=== PATIENT | female | born 1980 | race Caucasian/White ===

== ENCOUNTER 2017-03-11 22:55 | Observation (INO) | payer BC, OTHER ==
[2017-03-11] MEDS ORDERED: HYDROmorphone 1 MG/ML Syringe IVPUSH ONE (22:58)
[2017-03-11] MEDS ORDERED: Ondansetron 4 MG in Sodium Chloride 0.9% 50 ML IV STA (22:58)
[2017-03-11] MEDS ORDERED: Sodium Chloride 0.9% 1,000 ML IV ONE (23:00)
[2017-03-11] MEDS: Sodium Chloride 0.9% 1,000 ML ONE (23:00)
[2017-03-11] MEDS: Ondansetron 4 MG/2 ML SDV ONE (23:00)
[2017-03-11] MEDS: HYDROmorphone 1 MG/ML Syringe ONE (23:05)
[2017-03-11] MEDS: HYDROmorphone 1 MG/ML Syringe IVPUSH PRN (23:10)
[2017-03-11 23:14] LABS: CHLORIDE,CL 99 mEq/L (98-106); SODIUM,NA 134 mEq/L (136-145)
--- NOTE | 2017-03-12 01:00 | EDM.PDOC ---
ED HPI GENERAL MEDICAL PROBLEM - General Chief Complaint: Abdominal Pain Stated Complaint: abdominal pain Time Seen by Provider: 03/11/17 23:00 Source of Information: Reports: Patient History Limitations: Reports: No Limitations - History of Present Illness INITIAL COMMENTS - FREE TEXT/NARRATIVE: C/O severe right upper quadrant abdominal pain after eating. Onset: Sudden Duration: Minutes: Location: Reports: Abdomen Quality: Reports: Sharp, Stabbing Severity: Severe Improves with: Reports: Medication - Related Data Allergies Allergy/AdvReac Type Severity Reaction Status Date / Time No Known Allergies Allergy Verified 03/11/17 22:58 Past Medical History - Past Surgical History GI Surgical History: Reports: Appendectomy Female Surgical History: Reports: Section, Tubal Ligation Social & Family History - Family History HEENT: Reports: Cataract OBGYN: Reports: Neurological: Reports: CVA Oncologic: Reports: Leukemia - Tobacco Use Smoking Status *Q: Never Smoker Second Hand Smoke Exposure: No - Caffeine Use Caffeine Use: Reports: Coffee, Soda - Alcohol Use Days Per Week of Alcohol Use: 2 Number of Drinks Per Day: 3 Total Drinks Per Week: 6 Date of Last Drink: 03/11/17 - Recreational Drug Use Recreational Drug Use: No ED ROS GENERAL - Review of Systems Review Of Systems: ROS reveals no pertinent complaints other than HPI. Constitutional: Reports: No Symptoms HEENT: Reports: No Symptoms Respiratory: Reports: No Symptoms Cardiovascular: Reports: No Symptoms Endocrine: Reports: No Symptoms GI/Abdominal: Reports: Abdominal Pain Musculoskeletal: Reports: No Symptoms Skin: Reports: No Symptoms Neurological: Reports: No Symptoms Psychiatric: Reports: No Symptoms Hematologic/Lymphatic: Reports: No Symptoms Immunologic: Reports: No Symptoms ED EXAM, GI/ABD - Physical Exam Exam: See Below Exam Limited By: No Limitations General Appearance: Alert, WD/WN Nose: Normal Inspection Throat/Mouth: Normal Inspection Head: Atraumatic Neck: Normal Inspection Respiratory/Chest: No Respiratory Distress Cardiovascular: Normal Peripheral Pulses GI/Abdominal Exam: Guarding, Rigid, Tender Back Exam: Normal Inspection Extremities: Normal Inspection Neurological: Alert, Oriented Psychiatric: Normal Affect Skin Exam: Warm, Dry Course - Vital Signs Last Recorded V/S: Last Vital Signs Temp 99.2 F 03/11/17 23:36 Pulse 64 03/11/17 23:36 Resp 22 H 03/11/17 23:36 BP 117/79 03/11/17 23:36 Pulse Ox 98 03/11/17 23:36 - Orders/Labs/Meds Orders: Active Orders 24 hr Category Date Time Status Abdomen Pelvis w Cont [CT] Stat Exams 03/11/17 23:41 Taken Sodium Chloride 0.9% [Normal Saline] 1,000 ml Med 03/11/17 23:00 Active IV .BOLUS Medication Orders Sodium Chloride (Normal Saline) 1,000 mls @ 125 mls/hr IV .BOLUS ONE Stop: 03/12/17 06:59 Ondansetron HCl 4 mg/ Sodium (Chloride) 52 mls @ 100 mls/hr IV Q4H PRN PRN Reason: Abdominal Pain Labs: Laboratory Tests 03/11/17 03/11/17 03/11/17 Range/Units 22:55 22:58 22:58 WBC 7.8 (5.0-10.0) 10^3/uL RBC 4.28 (4.00-5.50) 10^6/uL Hgb 13.2 (12.0-16.0) g/dL Hct 39.4 (37.0-47.0) % MCV 92.1 (82.0-94.0) fL MCH 30.8 (27.0-32.0) pg MCHC 33.5 (33.0-38.0) g/dL RDW Coeff of Brett 12.7 (11.0-15.0) % Plt Count 332 (150-400) 10^3/uL Neut % (Auto) 62.4 (35-85) % Lymph % (Auto) 29.5 (10-55) % [place] % (Auto) 5.9 (0-16) % Eos % (Auto) 1.8 (0-5) % Baso % (Auto) 0.4 (0-3) % Neut # (Auto) 4.88 (1.80-7.00) 10^3/uL Lymph # (Auto) 2.31 (1.00-4.80) 10^3/uL [place] # (Auto) 0.46 (0.00-0.80) 10^3/uL Eos # (Auto) 0.14 (0.00-0.45) 10^3/uL Baso # (Auto) 0.03 10^3/uL Sodium 134 L (136-145) mEq/L Potassium 3.7 (3.5-5.0) mEq/L Chloride 99 (98-106) mEq/L Carbon Dioxide 24 (21-32) mmol/L BUN 12 (7-18) mg/dL Creatinine 0.8 (0.6-1.0) mg/dL Est Cr Clr Drug Dosing TNP Estimated GFR (MDRD) > 60 (>=60) mL/min Glucose 128 H (75-99) mg/dL Calcium 9.7 (8.4-10.1) mg/dL Total Bilirubin 0.7 (0.0-1.0) mg/dL AST 52 H (15-37) U/L ALT 63 (12-78) U/L Alkaline Phosphatase 127 H (46-116) U/L Total Protein 8.3 H (6.4-8.2) g/dL Albumin 4.2 (3.4-5.0) g/dL Amylase 69 (25-115) U/L Urine Color (YELLOW) Urine Appearance (CLEAR) Urine pH (4.5-8.0) Ur Specific [place] (1.003-1.020) Urine Protein (NEGATIVE) mg/dL Urine Glucose (UA) (NEGATIVE) mg/dL Urine Ketones (NEGATIVE) mg/dL Urine Occult Blood (NEGATIVE) Urine Nitrite (NEGATIVE) Urine Bilirubin (NEGATIVE) Urine Urobilinogen (0.2-1.0) EU/dL Ur Leukocyte Esterase (NEGATIVE) Urine RBC (0-5) /HPF Urine WBC (0-5) /HPF Ur Squamous Epith Cells (NOT SEEN) /HPF Urine Bacteria (NOT SEEN) /HPF 03/11/17 Range/Units 23:25 WBC (5.0-10.0) 10^3/uL RBC (4.00-5.50) 10^6/uL Hgb (12.0-16.0) g/dL Hct (37.0-47.0) % MCV (82.0-94.0) fL MCH (27.0-32.0) pg MCHC (33.0-38.0) g/dL RDW Coeff of Brett (11.0-15.0) % Plt Count (150-400) 10^3/uL Neut % (Auto) (35-85) % Lymph % (Auto) (10-55) % [place] % (Auto) (0-16) % Eos % (Auto) (0-5) % Baso % (Auto) (0-3) % Neut # (Auto) (1.80-7.00) 10^3/uL Lymph # (Auto) (1.00-4.80) 10^3/uL [place] # (Auto) (0.00-0.80) 10^3/uL Eos # (Auto) (0.00-0.45) 10^3/uL Baso # (Auto) 10^3/uL Sodium (136-145) mEq/L Potassium (3.5-5.0) mEq/L Chloride (98-106) mEq/L Carbon Dioxide (21-32) mmol/L BUN (7-18) mg/dL Creatinine (0.6-1.0) mg/dL Est Cr Clr Drug Dosing Estimated GFR (MDRD) (>=60) mL/min Glucose (75-99) mg/dL Calcium (8.4-10.1) mg/dL Total Bilirubin (0.0-1.0) mg/dL AST (15-37) U/L ALT (12-78) U/L Alkaline Phosphatase (46-116) U/L Total Protein (6.4-8.2) g/dL Albumin (3.4-5.0) g/dL Amylase (25-115) U/L Urine Color Yellow (YELLOW) Urine Appearance Clear (CLEAR) Urine pH 8.5 H (4.5-8.0) Ur Specific [place] 1.014 (1.003-1.020) Urine Protein Negative (NEGATIVE) mg/dL Urine Glucose (UA) Negative (NEGATIVE) mg/dL Urine Ketones Trace H (NEGATIVE) mg/dL Urine Occult Blood Negative (NEGATIVE) Urine Nitrite Negative (NEGATIVE) Urine Bilirubin Negative (NEGATIVE) Urine Urobilinogen 0.2 (0.2-1.0) EU/dL Ur Leukocyte Esterase Negative (NEGATIVE) Urine RBC Not seen (0-5) /HPF Urine WBC 0-5 (0-5) /HPF Ur Squamous Epith Cells Occasional H (NOT SEEN) /HPF Urine Bacteria Occasional H (NOT SEEN) /HPF Meds: Medications Generic Name Dose Route Start Last Admin Trade Name Freq PRN Reason Stop Dose Admin Sodium Chloride 1,000 mls @ 125 mls/hr 03/11/17 23:00 Normal Saline IV 03/12/17 06:59 .BOLUS ONE Ondansetron HCl 4 mg/ Sodium 52 mls @ 100 mls/hr 03/12/17 01:08 Chloride IV Q4H PRN Abdominal Pain Discontinued Medications Generic Name Dose Route Start Last Admin Trade Name Nito PRN Reason Stop Dose Admin Hydromorphone HCl 1 mg 03/11/17 22:58 03/11/17 23:53 Dilaudid IVPUSH 03/11/17 22:59 1 mg ONETIME ONE Administration Hydromorphone HCl Confirm 03/11/17 22:54 03/11/17 23:05 Dilaudid Administered 03/11/17 22:55 1 mg Dose Administration 1 mg .ROUTE .STK-MED ONE Ondansetron HCl 4 mg/ Sodium 52 mls @ 100 mls/hr 03/11/17 22:58 03/12/17 00: 19 Chloride IV 03/11/17 23:29 Not Given Q8H STA Sodium Chloride Confirm 03/11/17 22:52 03/11/17 23:00 Normal Saline Administered 03/11/17 22:53 100 ml Dose Administration 1,000 mls @ as directed .ROUTE .STK-MED ONE Ondansetron HCl Confirm 03/11/17 22:54 03/11/17 23:00 Zofran Administered 03/11/17 22:55 4 mg Dose Administration 4 mg .ROUTE .STK-MED ONE Departure - Departure Time of Disposition: 00:59 (CT shows Gallbladder dilation. Will obs till morning and order US of gallbladder.) Disposition: Refer to Observation Condition: Fair Clinical Impression: Gall bladder disease - Discharge Information - My Orders Last 24 Hours: My Active Orders 03/11/17 23:00 Sodium Chloride 0.9% [Normal Saline] 1,000 ml IV .BOLUS 03/11/17 23:41 Abdomen Pelvis w Cont [CT] Stat - Assessment/Plan Admission H&P: Please use this note as an admission H&P Last 24 Hours: My Active Orders 03/11/17 23:00 Sodium Chloride 0.9% [Normal Saline] 1,000 ml IV .BOLUS 03/11/17 23:41 Abdomen Pelvis w Cont [CT] Stat
[2017-03-12] MEDS ORDERED: Ondansetron 4 MG in Sodium Chloride 0.9% 50 ML IV PRN (01:08)
[2017-03-12] MEDS: HYDROmorphone 1 MG/ML Syringe ONE (03:06)
[2017-03-12] MEDS: HYDROmorphone 1 MG/ML Syringe IVPUSH PRN (03:24)
[2017-03-12] MEDS: Ondansetron 4 MG/2 ML SDV ONE (04:50)
[2017-03-12] MEDS: Sodium Chloride 0.9% 1,000 ML ONE (04:56)
--- NOTE | 2017-03-12 07:25 | PCM.PN ---
- General Info Date of Service: 03/12/17 Admission Dx/Problem (Free Text): Lying in bed resting this morning states she feels good. Had one more bout of severe abdominal pain last night requiring pain medication. Gallbladder US scheduled for this morning for further evaluation of gallbladder disease to determine further course of referral and action. Functional Status: Reports: Pain Controlled - Review of Systems General: Reports: No Symptoms HEENT: Reports: No Symptoms Pulmonary: Reports: No Symptoms Cardiovascular: Reports: No Symptoms Gastrointestinal: Reports: No Symptoms Musculoskeletal: Reports: No Symptoms Skin: Reports: No Symptoms Neurological: Reports: No Symptoms Psychiatric: Reports: No Symptoms - Patient Data Vitals - most recent: Last Vital Signs Temp 97.8 F 03/12/17 03:40 Pulse 70 03/12/17 03:40 Resp 20 03/12/17 03:40 BP 106/67 03/12/17 03:40 Pulse Ox 98 03/11/17 23:36 Weight - most recent: 175 lb Med Orders - Current: Current Medications Hydromorphone HCl (Dilaudid) 0.5 mg IVPUSH Q1H PRN PRN Reason: Pain (severe 7-10) Last Admin: 03/12/17 03:24 Dose: 0.5 mg Ondansetron HCl 4 mg/ Sodium (Chloride) 52 mls @ 100 mls/hr IV Q4H PRN PRN Reason: Abdominal Pain Last Admin: 03/11/17 22:55 Dose: 100 mls/hr Discontinued Medications Hydromorphone HCl (Dilaudid) 1 mg IVPUSH ONETIME ONE Stop: 03/11/17 22:59 Last Admin: 03/11/17 23:53 Dose: 1 mg Hydromorphone HCl (Dilaudid) Confirm Administered Dose 1 mg .ROUTE .STK-MED ONE Stop: 03/11/17 22:55 Last Admin: 03/12/17 03:06 Dose: Not Given Ondansetron HCl 4 mg/ Sodium (Chloride) 52 mls @ 100 mls/hr IV Q8H STA Stop: 03/11/17 23:29 Last Admin: 03/12/17 00:19 Dose: Not Given Sodium Chloride (Normal Saline) 1,000 mls @ 125 mls/hr IV .BOLUS ONE Stop: 03/12/17 06:59 Last Admin: 03/11/17 23:00 Dose: 125 mls/hr Sodium Chloride (Normal Saline) Confirm Administered Dose 1,000 mls @ as directed .ROUTE .STK-MED ONE Stop: 03/11/17 22:53 Last Admin: 03/12/17 04:56 Dose: Not Given Ondansetron HCl (Zofran) Confirm Administered Dose 4 mg .ROUTE .STK-MED ONE Stop: 03/11/17 22:55 Last Admin: 03/12/17 04:50 Dose: Not Given - Problem List Review Problem List Initiated/Reviewed/Updated: Yes - My Orders Last 24 Hours: My Active Orders 03/12/17 08:00 Gallbladder [Abdomen Ltd] [US] Routine
[2017-03-12 11:45] VITALS: BP 109/64
--- NOTE | 2017-03-13 08:58 | PCM.DCSUM1 ---
Discharge Summary - Hospital Course Free Text/Narrative:: Patient admitted to observation with RUQ pain. She presented to ED after an acute bout of diarrhea that persisted and developed acute pain. She states she felt bloated, distended and had excessive gas prior to the pain. Took ibuprofen without much relief. Had issues with diarrhea, no nausea or vomiting. She had eaten sausage and fried potatoes for supper prior to this episode. Did have work up in the ER which included a CT scan. CT scan did show dilation of the gallbladder. Admitted for pain control and IV fluids. - Discharge Data Discharge Date: 03/13/17 Discharge Disposition: Home, Self-Care 01 Condition: Good - Patient Summary/Data Complications: none Hospital Course: Patient admitted for pain control. Did have recurrence of the pain at 0330 and was given pain meds. This am, pain improved. Voiding well. Does still bloated and sore. She did have a gallbladder ultrasound that showed disease. She did tolerate clear liquids and then soft diet for dinner. She will tentatively have a lap savanna with Dr. Beckham in 2 weeks and use Swink for pain control. Avoid greasy foods until that time. - Patient Instructions Diet: Usual Diet as Tolerated Activity: As Tolerated Notify Provider of: Increased Pain Other/Special Instructions: Schedule Lap Savanna with Dr. Beckham on March 26. Have patient remain NPO prior. He will consult with her prior to surgery that day. - Discharge Plan Prescriptions/Med Rec: Hydrocodone/Acetaminophen [Swink 5-325 Tablet] 1 - 2 each PO Q6H #30 tablet Home Medications: Home Meds Hydrocodone/Acetaminophen [Swink 5-325 Tablet] 1 - 2 each PO Q6H #30 tablet [Rx] Forms: ED Department Discharge - Discharge Summary/Plan Comment DC Time >30 min.: No Discharge Summary/Plan Comment: Discharge home. Swink for pain. [place] diet. Scheduled for lap savanna with Dr. Beckham on March 26. - General Info Date of Service: 03/13/17 Admission Dx/Problem (Free Text: RUQ Pain Cholelithiasis Functional Status: Reports: Pain Controlled, Tolerating Diet, Ambulating - Review of Systems General: Denies: Fever, Weakness, Fatigue HEENT: Reports: No Symptoms Pulmonary: Reports: No Symptoms Cardiovascular: Reports: No Symptoms Gastrointestinal: Reports: Abdominal Pain. Denies: Nausea, Vomiting Genitourinary: Reports: No Symptoms Musculoskeletal: Reports: No Symptoms Skin: Reports: No Symptoms Neurological: Reports: No Symptoms - Patient Data Vitals - Most Recent: Last Vital Signs Temp 98.3 F 03/12/17 11:43 Pulse 66 03/12/17 11:43 Resp 16 03/12/17 11:43 BP 109/64 03/12/17 11:43 Pulse Ox 96 03/12/17 11:43 Weight - Most Recent: 175 lb Med Orders - Current: Current Medications Discontinued Medications Hydromorphone HCl (Dilaudid) 1 mg IVPUSH ONETIME ONE Stop: 03/11/17 22:59 Last Admin: 03/11/17 23:53 Dose: 1 mg Hydromorphone HCl (Dilaudid) Confirm Administered Dose 1 mg .ROUTE .STK-MED ONE Stop: 03/11/17 22:55 Last Admin: 03/12/17 03:06 Dose: Not Given Hydromorphone HCl (Dilaudid) 0.5 mg IVPUSH Q1H PRN PRN Reason: Pain (severe 7-10) Last Admin: 03/12/17 03:24 Dose: 0.5 mg Ondansetron HCl 4 mg/ Sodium (Chloride) 52 mls @ 100 mls/hr IV Q8H STA Stop: 03/11/17 23:29 Last Admin: 03/12/17 00:19 Dose: Not Given Sodium Chloride (Normal Saline) 1,000 mls @ 125 mls/hr IV .BOLUS ONE Stop: 03/12/17 06:59 Last Admin: 03/11/17 23:00 Dose: 125 mls/hr Sodium Chloride (Normal Saline) Confirm Administered Dose 1,000 mls @ as directed .ROUTE .STK-MED ONE Stop: 03/11/17 22:53 Last Admin: 03/12/17 04:56 Dose: Not Given Ondansetron HCl 4 mg/ Sodium (Chloride) 52 mls @ 100 mls/hr IV Q4H PRN PRN Reason: Abdominal Pain Last Admin: 03/11/17 22:55 Dose: 100 mls/hr Ondansetron HCl (Zofran) Confirm Administered Dose 4 mg .ROUTE .STK-MED ONE Stop: 03/11/17 22:55 Last Admin: 03/12/17 04:50 Dose: Not Given - Exam General: Reports: Alert, Oriented HEENT: Reports: Mucous Membr. Moist/[place] Neck: Reports: Supple Lungs: Reports: Clear to Auscultation, Normal Respiratory Effort Cardiovascular: Reports: Regular Rate, Regular Rhythm GI/Abdominal Exam: Normal Bowel Sounds, Soft, Tender (right upper quadrant) Extremities: Normal Inspection, No Pedal Edema Skin: Reports: Warm, Dry Neurological: Reports: No New Focal Deficit *Q Meaningful Use (DIS) - VTE *Q VTE Criteria *Q: - Stroke *Q Stroke Criteria *Q: - AMI *Q AMI Criteria *Q:
== END 2017-03-12 14:46 | disposition home or self-care (01) ==
LOC: CC.ED 22:55 → CC.MS 03-12 00:56 → UNDOADMOB 03-12 00:56 → CC.MS 03-12 01:40
PROVIDERS: ADMIT Nurse Practitioner Family; ATTEND Family Medicine
DX: K82.8 Other specified diseases of gallbladder (principal); R10.11 Right upper quadrant pain; R19.7 Diarrhea, unspecified
CPT/HCPCS: 74177; 76705; 80053; 81001; 82150; 85025; 96361; 96374; 96375; 99285; J1170; J2405; J7030; J7050; Q9967; 96376; G0378

== ENCOUNTER 2019-05-18 19:49 | Emergency (ER) | payer BC ==
[2019-05-18] MEDS: Aspirin 81 MG Tab.Chew PO ONE (19:57)
[2019-05-18] MEDS: Nitroglycerin 2% Oint 1 GM UD Packet ONE ×2 (20:12→22:54)
[2019-05-18] MEDS: LORazepam 2 MG/ML Syringe IVPUSH ONE (20:13)
[2019-05-18 20:18] LABS: CHLORIDE,CL 99 mEq/L (98-106); SODIUM,NA 134 mEq/L (136-145)
[2019-05-18] MEDS: LORazepam 2 MG/ML Syringe ONE (20:20)
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
[2019-05-18] MEDS: Heparin Sodium 10,000 Units/1 ML MDV IVPUSH ONE (20:55)
[2019-05-18] MEDS: Heparin Sodium/D5W 25,000 UNITS/500 ML BAG IV STA (21:03)
[2019-05-18] MEDS: Morphine 2 MG/ML Syringe IVPUSH ONE (21:49)
[2019-05-18] MEDS: Morphine 2 MG/ML Syringe ONE (22:00)
[2019-05-18 22:09] VITALS: BP 96/55; PULSE 66
== END 2019-05-18 22:41 ==
LOC: CC.ED 19:49
DX: I21.4 Non-ST elevation (NSTEMI) myocardial infarction (principal); I24.9 Acute ischemic heart disease, unspecified
CPT/HCPCS: 36415; 71045; 80053; 84484; 85025; 85379; 85610; 85730; 93005; 96365; 96366; 96375; 96376; 99285; A9270; J1644; J2060; J2270